=== PATIENT | female | born 1970 | race Caucasian/White ===

== ENCOUNTER → 2019-11-15 | Outpatient (CLI) | payer OTHER ==
[~2019-11-15] MED LIST: ALTACE PO; NEXIUM40 M1 PO
--- NOTE | 2019-11-15 17:34 | Diagnostic Imaging Report ---
EXAM: Soft tissue Ultrasound INDICATION: Evaluation of neck lump suspicious for lymphadenopathy. COMPARISON: None. TECHNIQUE: Dedicated ultrasound of the neck was performed. FINDINGS: There is avascular, hypoechoic, oval-shaped subcutaneous lesion which measures approximately 0.5 x 0.3 x 0.4 cm. It is located posterior to the right ear and corresponds to the area indicated by patient. No additional findings identified. IMPRESSION: Avascular, hypoechoic oval-shaped subcutaneous lesion in the posterior right ear which measures approximately 0.5 x 0.3 x 0.4 cm. This may represent a small cyst or a lymph node. Recommend continued clinical follow-up and repeat ultrasound if any interval change in characteristics, including size. Signed by: Robin Campoverde MD on 11/15/2019 5:30 PM
== END ==
LOC: US 16:31
PROVIDERS: ATTEND Family Medicine
DX: R59.0 Localized enlarged lymph nodes (principal)
CPT/HCPCS: 76536

== ENCOUNTER → 2021-12-08 | Day surgery (SDC) | payer OTHER ==
[~2021-12-08] MED LIST changes: +BENICAR20 MG PO; +FENTANYL CITRATE/PF 100MCG/2 ML INJ ONE; +HYDROCODON-ACE1 EA11 PO; +HYOSCYAMINE SULFATE 0.5 MG/ML INJ IV ONE; +METOPROLOL TART25 MG PO; +MIDAZOLAM HCL 2 MG/2 ML VIAL ONE; +PROPOFOL IV EMULSION 10 MG/ML 20 ML VIAL IV ONE; +SIMETHICONE 40 MG/0.6 ML BTL ONE
[2021-12-08 08:50] VITALS: BP 131/80
== END | disposition home or self-care (01) ==
LOC: OR 07:22
PROVIDERS: ATTEND Internal Medicine Gastroenterology
DX: Z12.11 Encounter for screening for malignant neoplasm of colon (principal); Z86.010 Personal history of colon polyps; K63.89 Other specified diseases of intestine; K62.89 Other specified diseases of anus and rectum; K64.8 Other hemorrhoids; K21.9 Gastro-esophageal reflux disease without esophagitis; Z71.3 Dietary counseling and surveillance; G47.33 Obstructive sleep apnea (adult) (pediatric); I10 Essential (primary) hypertension; J45.909 Unspecified asthma, uncomplicated; Z88.6 Allergy status to analgesic agent; Z88.1 Allergy status to other antibiotic agents; Z01.810 Encounter for preprocedural cardiovascular examination; Z01.812 Encounter for preprocedural laboratory examination; Z20.822 Contact with and (suspected) exposure to COVID-19; Z79.899 Other long term (current) drug therapy; Z68.39 Body mass index [BMI] 39.0-39.9, adult; Z85.43 Personal history of malignant neoplasm of ovary; Z80.0 Family history of malignant neoplasm of digestive organs
CPT/HCPCS: 0223U; 36415; 45380; 93005; J1980; J2250; J2704; J3010; 45378